=== PATIENT | male | born 1985 | race Caucasian/White ===

== ENCOUNTER 2025-07-05 00:11 | Emergency (ER) | payer OTHER | END 2025-07-05 01:30 | disposition home or self-care (01) | LOC: CSHERS 00:11 | DX: S83.242A Other tear of medial meniscus, current injury, left knee, initial encounter (principal); X58.XXXA Exposure to other specified factors, initial encounter ==

== ENCOUNTER 2025-07-24 09:46 | Emergency (ER) | payer OTHER ==
[2025-07-24] MEDS ORDERED: HYDROcodone/Acetaminophen 5/325 mg Tablet ONE (11:19)
[2025-07-24] MEDS ORDERED: Gabapentin 300 MG CAP ONE (11:20)
== END 2025-07-24 11:30 | disposition home or self-care (01) ==
LOC: CSHERS 09:46
DX: G89.29 Other chronic pain (principal); M25.562 Pain in left knee
CPT/HCPCS: 99283